=== PATIENT | female | born 1990 | race Caucasian/White ===

== ENCOUNTER → 2024-06-18 09:42 | Outpatient (REF) | payer BC, SELFPAY | LOC: PNTC 09:42 | PROVIDERS: ATTENDING PHYSICIAN Obstetrics & Gynecology | DX: O09.511 Supervision of elderly primigravida, first trimester (principal); Z36.0 Encounter for antenatal screening for chromosomal anomalies; Z36.82 Encounter for antenatal screening for nuchal translucency | CPT/HCPCS: 36415; 76801; 76813 ==

== ENCOUNTER → 2024-07-16 07:44 | Outpatient (REF) | payer BC, SELFPAY | LOC: PNTC 07:44 | PROVIDERS: ATTENDING PHYSICIAN Obstetrics & Gynecology | DX: O09.519 Supervision of elderly primigravida, unspecified trimester (principal) | CPT/HCPCS: 76805 ==

== ENCOUNTER → 2024-08-13 14:12 | Outpatient (REF) | payer BC, SELFPAY | LOC: WDC 14:12 | PROVIDERS: ATTENDING PHYSICIAN Obstetrics & Gynecology | DX: N60.02 Solitary cyst of left breast (principal) | CPT/HCPCS: 76642 ==

== ENCOUNTER → 2024-12-10 11:32 | Outpatient (REF) | payer BC, SELFPAY | LOC: PNTC 11:32 | PROVIDERS: ATTENDING PHYSICIAN Obstetrics & Gynecology | DX: O36.8190 Decreased fetal movements, unspecified trimester, not applicable or unspecified (principal) | CPT/HCPCS: 59025 ==

== ENCOUNTER → 2024-12-12 11:32 | Outpatient (REF) | payer BC, SELFPAY | LOC: PNTC 11:32 | PROVIDERS: ATTENDING PHYSICIAN Obstetrics & Gynecology | DX: O36.8190 Decreased fetal movements, unspecified trimester, not applicable or unspecified (principal); O9A.219 Injury, poisoning and certain other consequences of external causes complicating pregnancy, unspecified trimester | CPT/HCPCS: 59025; 76815 ==

== ENCOUNTER 2024-12-19 22:37 | Inpatient (IN) | payer BC, SELFPAY ==
[2024-12-19] MEDS: LR 1000 IV (23:00)
[2024-12-19 23:06] VITALS: BP 124/78; BMI 37.1
[2024-12-19 23:17] LABS: % Basophils 0.2 % (0-2); % Immature Granulocytes 0.7 % (0-0.5); % Lymphocytes 8.7 % (20.5-51.1); % Monocytes 3.7 % (1.7-9.3); % Neutrophils 86.7 % (42.2-75.2); Absolute Immature Granulocytes 0.1 10^3/uL (0-0.05); Absolute Lymphocytes 1.4 10^3/uL (1.2-3.4); Absolute Monocytes 0.6 10^3/uL (0.1-0.6); Absolute Neutrophils 14.1 10^3/uL (1.4-6.5); Hematocrit 35.9 % (37.0-47.0); Hemoglobin 12.5 g/dL (12.0-16.0); Mean Corp Hgb Conc. 34.8 g/dL (33.0-37.0); Mean Corpuscular Hgb 30.8 pg (27.0-31.0); Mean Corpuscular Volume 88.4 fL (81.0-99.0); Mean Platelet Volume 9.5 fL (7.4-10.4); Nucleated Red Blood Cells % 0 %; Platelet Count 210 10^3/uL (130-400); Red Blood Cell Count 4.06 10^6/uL (4.20-5.40); Red Cell Dist. Width 12.4 % (11.5-14.5); White Blood Cell Count 16.3 10^3/uL (4.8-10.8)
[2024-12-19] MEDS: FENTANYL/BUPIVACAINE 100 EPIDURAL (23:33)
[2024-12-19] MEDS: SUBLIMAZE 100 MCG EPIDURAL (23:33)
[2024-12-20] MEDS: TYLENOL 650 MG PO ×2 (08:02→15:39)
[2024-12-20] MEDS: SENOKOT-S 1 TABLET PO (08:02)
[2024-12-20] MEDS: PRENATAL PLUS 1 TABLET PO (08:02)
[2024-12-20] MEDS: MOTRIN 600 MG PO ×2 (12:20→19:53)
[2024-12-21] MEDS: MOTRIN 600 MG PO ×3 (05:06→22:57)
[2024-12-21 05:52] LABS: Hematocrit 32.8 % (37.0-47.0); Hemoglobin 11.1 g/dL (12.0-16.0)
[2024-12-21] MEDS: SENOKOT-S 1 TABLET PO (09:00)
[2024-12-21] MEDS: PRENATAL PLUS 1 TABLET PO (09:00)
[2024-12-21] MEDS: TYLENOL 650 MG PO (18:33)
[2024-12-22] MEDS: MOTRIN 600 MG PO (05:05)
[2024-12-22] MEDS: PRENATAL PLUS 1 TABLET PO (09:44)
[2024-12-22] MEDS: SENOKOT-S 1 TABLET PO (09:44)
[2024-12-22] MEDS: TYLENOL 650 MG PO (09:46)
[2024-12-24 12:21] LABS: Syphilis/T. pallidum Ab Reflex Negative (Negative)
== END 2024-12-22 13:19 | disposition home or self-care (01) | DRG 807 ==
LOC: LDRP 22:37
PROVIDERS: ADMITTING PHYSICIAN Obstetrics & Gynecology
PROC: 10E0XZZ Delivery of Products of Conception, External Approach (ICD-10-PCS; 2024-12-20)
PROC: 0KQM0ZZ Repair Perineum Muscle, Open Approach (ICD-10-PCS; 2024-12-20)
DX: O77.0 Labor and delivery complicated by meconium in amniotic fluid (principal); Z37.0 Single live birth; Z22.8 Carrier of other infectious diseases; Z3A.38 38 weeks gestation of pregnancy; O70.1 Second degree perineal laceration during delivery; O99.214 Obesity complicating childbirth
CPT/HCPCS: 88307; 36415; 76815; 85014; 85018; 85025; 86780; 86850; 86900; 86901; 99406